=== PATIENT | female | born 1990 | race Hispanic/Latino ===

== ENCOUNTER 2020-11-10 00:22 | Emergency (ER) | payer OTHER ==
[~2020-11-10] VITALS: Ht 154.9 cm; Wt 111.1 kg
[2020-11-10] MEDS ORDERED: CLEOCIN HCL300 MG PO (00:47)
[2020-11-10 01:01] VITALS: BP 143/83
== END 2020-11-10 01:01 | disposition home or self-care (01) ==
LOC: FSED 00:42
DX: T81.30XA Disruption of wound, unspecified, initial encounter (principal); D89.89 Other specified disorders involving the immune mechanism, not elsewhere classified
CPT/HCPCS: 99282